=== PATIENT | female | born 1955 | race Caucasian/White ===

== ENCOUNTER → 2024-10-04 10:04 | Outpatient (REF) | payer MEDICARE, SELFPAY | LOC: RAD 10:04 | PROVIDERS: ATTENDING PHYSICIAN Family Medicine | DX: M85.88 Other specified disorders of bone density and structure, other site (principal); Z82.49 Family history of ischemic heart disease and other diseases of the circulatory system | CPT/HCPCS: 75571; 77080 ==

== ENCOUNTER 2025-09-15 06:23 | Day surgery (SDC) | payer MEDICARE, SELFPAY | END 2025-09-15 12:10 | disposition home or self-care (01) | LOC: GI 06:23 | PROVIDERS: ATTENDING PHYSICIAN Internal Medicine Gastroenterology; FAMILY PHYSICIAN Family Medicine | DX: Z12.11 Encounter for screening for malignant neoplasm of colon (principal); K59.00 Constipation, unspecified; K57.30 Diverticulosis of large intestine without perforation or abscess without bleeding; K64.8 Other hemorrhoids; D12.0 Benign neoplasm of cecum; Z86.0100 Personal history of colon polyps, unspecified | CPT/HCPCS: 45380; 88305 ==

== ENCOUNTER → 2025-10-12 13:50 | Outpatient (REF) | payer MEDICARE, SELFPAY | LOC: DHVS 13:50 | PROVIDERS: ATTENDING PHYSICIAN Internal Medicine Cardiovascular Disease; FAMILY PHYSICIAN Family Medicine | DX: I63.233 Cerebral infarction due to unspecified occlusion or stenosis of bilateral carotid arteries (principal) | CPT/HCPCS: 93880 ==

== ENCOUNTER 2025-10-25 06:49 | Day surgery (SDC) | payer MEDICARE, SELFPAY ==
[2025-10-25] VITALS (11 sets, daily range): BP systolic 112–139; BP diastolic 52–72; BMI 25.0
[2025-10-25] MEDS: HEPARIN 5000 UNITS SC (11:41)
[2025-10-25] MEDS: NORMOSOL-R/PLASMALYTE-A 1000 IV (11:45)
[2025-10-25] MEDS: ZOFRAN 4 MG IV (16:41)
[2025-10-25] MEDS: TYLENOL 650 MG PO (17:57)
== END 2025-10-25 18:40 | disposition home or self-care (01) ==
LOC: SDS 06:49
PROVIDERS: ATTENDING PHYSICIAN Obstetrics & Gynecology
DX: N81.2 Incomplete uterovaginal prolapse (principal); N39.3 Stress incontinence (female) (male); R31.29 Other microscopic hematuria; N95.8 Other specified menopausal and perimenopausal disorders; N36.41 Hypermobility of urethra; D25.9 Leiomyoma of uterus, unspecified; N83.201 Unspecified ovarian cyst, right side; N83.8 Other noninflammatory disorders of ovary, fallopian tube and broad ligament
CPT/HCPCS: 57425; 58571; 57288; 86850; 86900; 86901; 88305; C1763; C1771